=== PATIENT | female | born 1995 | race Two or more races ===

== ENCOUNTER 2024-02-05 14:21 | Emergency (ER) | payer MEDICAID, OTHER ==
[~2024-02-05] VITALS: Ht 157.5 cm; Wt 70.8 kg
--- NOTE | 2024-02-05 14:42 | NUR ---
PT IS IN ROOM #1B. DR SALAS EVALUATED THE PT.
[2024-02-05 15:19] LABS: BASOPHILS % (AUTO) 0.2 % (0.0-2.0); EOSINOPHILS # (AUTO) 0.1 K/uL (0.0-0.7); EOSINOPHILS % (AUTO) 0.5 % (0.0-7.0); HEMATOCRIT 39.8 % (31.2-41.9); HEMOGLOBIN 12.9 g/dL (10.9-14.3); LYMPHOCYTES % (AUTO) 15.5 % (20.5-51.5); MEAN CORPUSCULAR HGB CONC 32 g/dL (32.3-35.6); MEAN CORPUSCULAR VOLUME 83.7 fL (75.5-95.3); MONOCYTES # (AUTO) 0.9 K/uL (0.1-1.30); MONOCYTES % (AUTO) 4.4 % (0.0-11.0); NEUTROPHILS # (AUTO) 15.7 K/uL (1.8-8.9); NEUTROPHILS % (AUTO) 79.4 % (38.5-71.5); PLATELET COUNT (AUTO) 293 K/uL (179-408); RED BLOOD CELL COUNT(AUTO) 4.76 MIL/uL (3.63-4.92); RED CELL DISTRIBUTION WIDTH 12.9 % (12.3-17.7); WHITE BLOOD COUNT (AUTO) 19.7 K/uL (3.8-11.8)
[2024-02-05 15:21] LABS: DIFFERENTIAL COMMENT 1
[2024-02-05 15:28] LABS: CALCIUM 9.4 mg/dL (8.5-10.1); CREATININE 0.9 mg/dL (0.6-1.3); POTASSIUM 3.1 mmol/L (3.5-5.1)
[2024-02-05 15:33] LABS: ALBUMIN 3.8 g/dL (3.4-5.0); BILIRUBIN,DIRECT 0.1 mg/dL (0.0-0.2); MAGNESIUM 1.9 mg/dL (1.8-2.4); TOTAL PROTEIN, SERUM 7.6 g/dL (6.4-8.2)
[2024-02-05] MEDS ORDERED: IOHEXOL 300MG/ML 100 ML INFUS..BTL ONE (15:45)
[2024-02-05] MEDS ORDERED: IV NORMAL SALINE 250 ML IV ONE (15:45)
[2024-02-05] MEDS ORDERED: SWABABLE VALVE TRANSFER SET EA MC ONE (15:46)
[2024-02-05] MEDS ORDERED: POTASSIUM CHLORIDE 200 ML ONE (15:51)
[2024-02-05] MEDS: IV NS 1000 ML 1,000 ML IV ONE (16:02)
[2024-02-05] MEDS: POTASSIUM CHLORIDE 50 ML IV SCH (16:03)
--- NOTE | 2024-02-05 16:23 | NUR ---
[facility] WAS CALLED TO REQUEST [facility] TRANSFER FOR PT.
[2024-02-05] MEDS ORDERED: KETOROLAC TROMETHAMINE 30 MG INJ ONE (16:50)
[2024-02-05] MEDS: KETOROLAC TROMETHAMINE 30 MG INJ IVP ONE (16:53)
--- NOTE | 2024-02-05 16:55 | NUR ---
[facility] WAS CALLED TO REQUEST PT's TRANSFER TO [facility] DR SALAS TALKED TO DR PONCE. DR SALAS WAS ADVISED BY DR PONCE TO [facility]ER [facility]
--- NOTE | 2024-02-05 17:11 | NUR ---
[facility] WAS CALLED WITH REQUEST OF [facility] CARE TRANSFER ACCORDING TO DR JOSUE DÍAZ. TALKED TO ER [employer] MAIL CAR[employer]ER JACKY. 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 PT IS ACCEPTED BY DR DO. PT IS GOING TO BE TRANSFERD TO [facility] ER.
--- NOTE | 2024-02-05 17:32 | NUR ---
[facility] CAN NOT PROVIDE TRANSPORTATION FROM [facility] ER TO [facility] ER BY [facility].
--- NOTE | 2024-02-05 18:03 | NUR ---
[facility] WAS CALLED TO TRANSFER PT TO [facility] ACCORDING TO DR JOSUE DÍAZ.
[2024-02-05 18:10] VITALS: O2SAT 98
--- NOTE | 2024-02-05 18:14 | NUR ---
PT WAS TRANSFERED TO [facility]IA [facility] . REPORT WAS GIVEN TO AMBULANCE PARAMEDICS.
== END 2024-02-05 18:46 | disposition short-term general hospital (02) ==
LOC: ER 15:26
DX: S36.09XA Other injury of spleen, initial encounter (principal); E88.810 Metabolic syndrome; E87.6 Hypokalemia; R10.2 Pelvic and perineal pain; X58.XXXA Exposure to other specified factors, initial encounter; Y93.89 Activity, other specified; Y92.89 Other specified places as the place of occurrence of the external cause; Y99.8 Other external cause status
CPT/HCPCS: 99291; 74177; 96365; 96366; 96375; 80076; 80048; 83735; 85025; 84702; 71101; 96376; J1885; Q9967; J3480; J7040; 36415; 93005; A4606; A4663